=== PATIENT | male | born 1995 | race Caucasian/White ===

== ENCOUNTER 2020-01-19 08:13 | Emergency (ER) | payer OTHER ==
[2020-01-19] MEDS ORDERED: TESSALON PER100 MG PO (08:31)
[2020-01-19 08:53] VITALS: BP 129/76
[2020-01-19] MEDS ORDERED: ROBITUSSIN AC10 ML PO (09:16)
[2020-01-19] MEDS ORDERED: CEPHALEXIN500 MG PO (09:16)
[2020-01-19] MEDS ORDERED: PREVACID30 M3 PO (09:18)
== END 2020-01-19 09:54 | disposition home or self-care (01) | DRG 153 ==
LOC: ED 08:13
DX: J06.9 Acute upper respiratory infection, unspecified (principal); Z20.828 Contact with and (suspected) exposure to other viral communicable diseases